=== PATIENT | female | born 1995 | race African-American/Black ===

== ENCOUNTER 2022-09-18 23:36 | Emergency (ER) | payer OTHER ==
[~2022-09-18] VITALS: Ht 165.1 cm; Wt 122.5 kg
[2022-09-19] MEDS ORDERED: SODIUM CHLORIDE 0.9% 1000ML 1,000 ML IV STA (00:02)
[2022-09-19] MEDS ORDERED: SODIUM CHLORIDE 0.9% 1000ML 1,000 ML ONE (00:18)
[2022-09-19] MEDS ORDERED: INSULIN REGULAR, HUMAN 100 UNIT/1 ML SQ ONE (00:30)
[2022-09-19] MEDS ORDERED: INSULIN REGULAR, HUMAN 100 UNIT/1 ML IV ONE (00:30)
[2022-09-19] MEDS ORDERED: METFORMIN HCL500 MG PO (00:35)
[2022-09-19] MEDS ORDERED: DIFLUCAN100 MG PO (00:35)
[2022-09-19] MEDS ORDERED: GLIPIZIDE5 MG PO (00:35)
[2022-09-19] MEDS ORDERED: INSULIN REGULAR, HUMAN 100 UNIT/1 ML ONE (00:43)
== END 2022-09-19 01:12 | disposition home or self-care (01) ==
LOC: FSED 23:39
DX: E11.65 Type 2 diabetes mellitus with hyperglycemia (principal); Z88.8 Allergy status to other drugs, medicaments and biological substances; Z79.84 Long term (current) use of oral hypoglycemic drugs
CPT/HCPCS: 80053; 81003; 85025; 99283; J1817; J7030

== ENCOUNTER 2023-11-25 18:41 | Emergency (ER) | payer OTHER ==
[~2023-11-25] VITALS: Ht 165.1 cm; Wt 119.3 kg
[~2023-11-25 18:41] MED LIST: DIFLUCAN100 MG PO; GLIPIZIDE5 MG PO; METFORMIN HCL500 MG PO
[2023-11-25 18:45] VITALS: O2SAT 100
[2023-11-25] MEDS ORDERED: CEPHALEXIN500 MG PO (19:01)
[2023-11-25] MEDS ORDERED: BACTRIM DS TAB1 EACH PO (19:01)
== END 2023-11-25 19:07 | disposition home or self-care (01) ==
LOC: FSED 19:00
DX: L02.415 Cutaneous abscess of right lower limb (principal); E11.9 Type 2 diabetes mellitus without complications
CPT/HCPCS: 99283

== ENCOUNTER 2024-03-22 23:35 | Emergency (ER) | payer OTHER ==
[~2024-03-22] VITALS: Ht 165.1 cm; Wt 116.1 kg
[~2024-03-22 23:35] MED LIST changes: +BACTRIM DS TAB1 EACH PO; +CEPHALEXIN500 MG PO
[2024-03-22 23:43] VITALS: PULSE 97; RESP 18; TEMP 97.4
[2024-03-23] MEDS ORDERED: LORATADINE10 MG PO (00:01)
[2024-03-23] MEDS ORDERED: NASACORT16.9 ML (00:01)
[2024-03-23] MEDS ORDERED: DIPHENHYDRAMINE25 M2 PO (00:01)
[2024-03-23] MEDS: DEXAMETHASONE SOD PHOS INJ 4 MG/ML SDV IM ONE (00:10)
[2024-03-23] MEDS ORDERED: INSULIN REGULAR, HUMAN 100 UNIT/1 ML SQ ONE (00:15)
[2024-03-23 00:55] VITALS: BP 134/91; PULSE 97; RESP 18; TEMP 97.4; O2SAT 100
== END 2024-03-23 00:55 | disposition home or self-care (01) ==
LOC: FSED 23:48
DX: R05.9 Cough, unspecified (principal); J35.1 Hypertrophy of tonsils; R09.89 Other specified symptoms and signs involving the circulatory and respiratory systems; E11.65 Type 2 diabetes mellitus with hyperglycemia; R09.81 Nasal congestion
CPT/HCPCS: 36415; 82948; 83518; 96372; 99282; J1100

== ENCOUNTER 2024-07-10 23:01 | Emergency (ER) | payer OTHER ==
[~2024-07-10] VITALS: Ht 165.1 cm; Wt 116.6 kg
[~2024-07-10 23:01] MED LIST changes: +DIPHENHYDRAMINE25 M2 PO; +LORATADINE10 MG PO; +NASACORT16.9 ML
[2024-07-11] MEDS ORDERED: VENTOLIN HFA18 GM INH
[2024-07-11] MEDS ORDERED: PREDNISONE20 MG PO
[2024-07-11] MEDS: ALBUTEROL/IPRATROPIUM 3 ML NEB NEB SCH (00:06)
[2024-07-11] MEDS: PREDNISONE 20 MG TAB PO ONE (00:06)
[2024-07-11] MEDS: ALBUTEROL/IPRATROPIUM 3 ML NEB NEB ONE ×2 (00:07→00:08)
[2024-07-11 00:08] VITALS: PULSE 98; RESP 26
[2024-07-11 00:23] VITALS: PULSE 71; RESP 18; TEMP 98.3; O2SAT 100
== END 2024-07-11 00:23 | disposition home or self-care (01) ==
LOC: FSED 23:07
DX: R06.00 Dyspnea, unspecified (principal); J45.901 Unspecified asthma with (acute) exacerbation; R07.89 Other chest pain; Z11.52 Encounter for screening for COVID-19
CPT/HCPCS: 0223U; 71046; 83518; 87400; 99283

== ENCOUNTER 2024-09-04 00:19 | Emergency (ER) | payer OTHER ==
[~2024-09-04] VITALS: Ht 165.1 cm; Wt 116.6 kg
[~2024-09-04 00:19] MED LIST changes: +PREDNISONE20 MG PO; +VENTOLIN HFA18 GM INH
[2024-09-04 00:20] VITALS: PULSE 82; RESP 18; TEMP 98.3; O2SAT 98
[2024-09-04] MEDS ORDERED: SODIUM CHLORIDE 0.9% 1000ML 1,000 ML IV ONE (01:00)
[2024-09-04] MEDS ORDERED: INSULIN REGULAR, HUMAN 100 UNIT/1 ML IV ONE (01:00)
[2024-09-04] MEDS ORDERED: JANUMET 50-5001 EACH PO (01:06)
[2024-09-04] MEDS ORDERED: DIFLUCAN100 MG PO (01:09)
== END 2024-09-04 01:24 | disposition home or self-care (01) ==
LOC: FSED 00:24
DX: E11.65 Type 2 diabetes mellitus with hyperglycemia (principal); Z91.148 Patient's other noncompliance with medication regimen for other reason
CPT/HCPCS: 36415; 82948; 99283

== ENCOUNTER 2025-03-07 12:32 | Emergency (ER) | payer OTHER ==
[~2025-03-07] VITALS: Ht 165.1 cm; Wt 112.7 kg
[~2025-03-07 12:32] MED LIST changes: +JANUMET 50-5001 EACH PO
[2025-03-07 12:35] VITALS: PULSE 102; RESP 20; TEMP 97.3; O2SAT 95
[2025-03-07] MEDS ORDERED: ACETAMINOPHEN-1 EAC4 PO (12:58)
[2025-03-07] MEDS ORDERED: CLEOCIN HCL300 MG PO (12:58)
[2025-03-07] MEDS ORDERED: MUPIROCIN15 GM TOP (12:58)
[2025-03-07] MEDS ORDERED: BACTRIM DS TAB1 EACH PO (12:58)
[2025-03-07] MEDS ORDERED: IBUPROFEN800 MG PO (12:58)
[2025-03-07] MEDS: TRIMETHOPRIM/SULFAMETHOXAZOLE 160-800 MG TAB PO ONE (13:09)
[2025-03-07] MEDS: IBUPROFEN 600 MG TAB PO STA (13:09)
== END 2025-03-07 13:09 | disposition home or self-care (01) ==
LOC: FSED 12:38
DX: L73.8 Other specified follicular disorders (principal); E11.9 Type 2 diabetes mellitus without complications
CPT/HCPCS: 99284